=== PATIENT | male | born 1950 | race African-American/Black ===

== ENCOUNTER 2017-11-04 09:32 | Inpatient (IN) | payer OTHER ==
[2017-11-04 09:36] VITALS: BMI 21.5
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
[2017-11-04] MEDS ORDERED: hydrOXYzine PAMOATE 50 MG CAPSULE (FP) PO PRN (09:52)
[2017-11-04] MEDS ORDERED: NICOTINE POLACRILEX 4 MG GUM BUC PRN (09:52)
[2017-11-04] MEDS ORDERED: MAGNESIUM CITRATE 300 ML BOTTLE PO PRN (09:52)
[2017-11-04] MEDS ORDERED: MAGNESIUM HYDROX 2400MG/30ML ORAL SUSPENSION 30 ML CUP PO PRN (09:52)
[2017-11-04] MEDS ORDERED: IBUPROFEN 400 MG TABLET (FP) PO PRN (09:52)
[2017-11-04] MEDS ORDERED: MAG HYDROX/AL HYDROX/SIMETH 30 ML UNIT-DOSE CUP PO PRN (09:52)
[2017-11-04] MEDS ORDERED: ACETAMINOPHEN 325 MG TABLET (FP) PO PRN (09:52)
[2017-11-04] MEDS ORDERED: LOPERAMIDE HCL 2 MG CAPSULE PO PRN (09:52)
[2017-11-04] MEDS ORDERED: MENTHOL/PHENOL 1 EACH UD MM PRN (09:52)
[2017-11-04] MEDS ORDERED: guaiFENesin/D-METHORPHAN HB 10 ML UNIT-DOSE CUPS PO PRN (09:52)
[2017-11-04] MEDS ORDERED: chlordiazePOXIDE HCL 25 MG CAPSULE PO ONE (10:45)
[2017-11-04] MEDS: chlordiazePOXIDE HCL 25 MG CAPSULE PO SCH ×3 (11:44→22:13)
[2017-11-04] MEDS: PRENATAL VITAMINS W/ FOLIC ACID TABLET (FP) PO SCH (11:44)
[2017-11-04 16:58] LABS: URINE APPEARANCE CLEAR; URINE BILIRUBIN NEGATIVE (<2.0 mg/dL); URINE COLOR LTYELLOW; URINE GLUCOSE (UA) NEGATIVE (NEGATIVE); URINE KETONE NEGATIVE (NEGATIVE); URINE LEUK ESTERASE NEGATIVE (NEGATIVE); URINE NITRITE NEGATIVE (NEGATIVE); URINE PROTEIN NEGATIVE (NEGATIVE); URINE UROBILINOGEN 4.0 E.U/dl mg/dL (0.2-1.0)
[2017-11-04] MEDS: chlordiazePOXIDE HCL 25 MG CAPSULE PO PRN (19:47)
[2017-11-04] MEDS: P-EPHED 60MG/TRIPROLIDI 2.5MG TABLET PO PRN (20:02)
[2017-11-04] MEDS ORDERED: MELATONIN 5 MG TABLETS PO PRN (22:00)
[2017-11-04] MEDS: THIAMINE HCL 100 MG TABLET (FP) PO SCH (22:13)
[2017-11-05] MEDS: chlordiazePOXIDE HCL 25 MG CAPSULE PO PRN (00:27)
[2017-11-05] MEDS: chlordiazePOXIDE HCL 25 MG CAPSULE PO SCH ×4 (05:42→22:37)
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
[2017-11-05 10:31] LABS: HEMATOCRIT 34.1 % (35.4-49); HEMOGLOBIN 11.7 GM/dL (11.7-16.9); MCH 33.2 pg (25.7-33.7); MCHC 34.3 g/dl (32.0-35.9); MEAN CELL VOLUME 96.8 fl (80-96); MEAN PLT VOLUME 7.8 fl (7.5-11.1); PLATELET COUNT 107 K/MM3 (134-434); RBC 3.53 M/mm3 (4.00-5.60); RDW 15.1 % (11.9-15.9); WHITE BLOOD COUNT 2.9 K/mm3 (4.0-10.0)
[2017-11-05] MEDS: PRENATAL VITAMINS W/ FOLIC ACID TABLET (FP) PO SCH (10:46)
[2017-11-05 10:48] LABS: CHLORIDE 102 mmol/L (98-107); POTASSIUM 3.3 mmol/L (3.5-5.1); SODIUM 140 mmol/L (136-145)
[2017-11-05 10:56] LABS: ALBUMIN 3.3 g/dl (3.4-5.0); ALK PHOS 87 U/L (45-117); ANION GAP 6 (8-16); BILIRUBIN,TOTAL 0.9 mg/dL (0.2-1.0); BLOOD UREA NITROGEN 12 mg/dL (7-18); CALCIUM 7.8 mg/dL (8.5-10.1); CO2 32 mmol/L (21-32); CREATININE 0.8 mg/dL (0.7-1.3); GLUCOSE,RANDOM 92 mg/dL (74-106); SGOT/AST 78 U/L (15-37); SGPT/ALT 26 U/L (12-78); TOT PROT 6.9 g/dl (6.4-8.2)
--- NOTE | 2017-11-05 11:49 | PN ---
BHS Progress Note Note: pt c/o chest discomfort mid upper quadrant of abdomen ekg ordered ekg results no significant changes encouraged to take motrin and [place] will f/u
--- NOTE | 2017-11-05 11:52 | PN ---
[facility] CIWA - CIWA Score Nausea/Vomitin-No Nausea/No Vomiting Muscle Tremors: 4-Moderate,w/Arms Extend Anxiety: 4-Mod. Anxious/Guarded Agitation: 3 Paroxysmal Sweats: 3 Orientation: 0-Oriented Tacttile Disturbances: 0-None Auditory Disturbances: 0-None Visual Disturbances: 0-None Headache: 0-None Present CIWA-Ar Total Score: 14 S Progress Note (SOAP) Subjective: sweats body aches chest discomfort interrupted sleep Objective: 11/05/17 11:51 Vital Signs Temperature 97.5 F L 11/05/17 11:15 Pulse Rate 68 11/05/17 11:30 Respiratory Rate 18 11/05/17 11:30 Blood Pressure 107/65 11/05/17 11:15 O2 Sat by Pulse Oximetry (%) Laboratory Tests 11/04/17 11/05/17 11/05/17 14:20 07:30 07:30 WBC 2.9 L RBC 3.53 L Hgb 11.7 Hct 34.1 L MCV 96.8 H MCH 33.2 MCHC 34.3 RDW 15.1 Plt Count 107 L MPV 7.8 Sodium 140 Potassium 3.3 L Chloride 102 Carbon Dioxide 32 Anion Gap 6 L BUN 12 Creatinine 0.8 Creat Clearance w eGFR > 60 Random Glucose 92 Calcium 7.8 L Total Bilirubin 0.9 AST 78 H ALT 26 Alkaline Phosphatase 87 Total Protein 6.9 Albumin 3.3 L Urine Color Ltyellow Urine Appearance Clear Urine pH 6.0 Ur Specific [place] 1.013 Urine Protein Negative Urine Glucose (UA) Negative Urine Ketones Negative Urine Blood 1+ H Urine Nitrite Negative Urine Bilirubin Negative Urine Urobilinogen 4.0 e.u/dl Ur Leukocyte Esterase Negative Urine WBC (Auto) <1 Urine RBC (Auto) 1 RPR Titer HIV 1&2 Antibody Screen HIV P24 Antigen 11/05/17 11/05/17 07:30 07:30 WBC RBC Hgb Hct MCV MCH MCHC RDW Plt Count MPV Sodium Potassium Chloride Carbon Dioxide Anion Gap BUN Creatinine Creat Clearance w eGFR Random Glucose Calcium Total Bilirubin AST ALT Alkaline Phosphatase Total Protein Albumin Urine Color Urine Appearance Urine pH Ur Specific [place] Urine Protein Urine Glucose (UA) Urine Ketones Urine Blood Urine Nitrite Urine Bilirubin Urine Urobilinogen Ur Leukocyte Esterase Urine WBC (Auto) Urine RBC (Auto) RPR Titer Nonreactive HIV 1&2 Antibody Screen Negative HIV P24 Antigen Negative potassium 3.2; k-dur 2meq x 4 days ordered aaox3 lying in bed no acute distress Assessment: 11/05/17 11:52 withdrawal sx Plan: continue detox increase fluids
[2017-11-05 12:08] LABS: SICKLE CELL SCREEN NEGATIVE (NEGATIVE)
[2017-11-05] MEDS: POTASSIUM CHLORIDE TABS 20 MEQ TABLET.ER (FP) PO SCH (14:25)
[2017-11-05] MEDS: THIAMINE HCL 100 MG TABLET (FP) PO SCH (22:36)
[2017-11-05] MEDS: QUEtiapine FUMARATE 100 MG TABLET (FP) PO SCH (22:37)
[2017-11-06] MEDS: chlordiazePOXIDE HCL 25 MG CAPSULE PO SCH (05:42)
[2017-11-06] MEDS: PRENATAL VITAMINS W/ FOLIC ACID TABLET (FP) PO SCH (09:36)
[2017-11-06] MEDS: P-EPHED 60MG/TRIPROLIDI 2.5MG TABLET PO PRN (09:36)
[2017-11-06] MEDS: POTASSIUM CHLORIDE TABS 20 MEQ TABLET.ER (FP) PO SCH (09:36)
[2017-11-06] MEDS: chlordiazePOXIDE 5 MG CAPSULE PO SCH ×3 (10:28→22:20)
--- NOTE | 2017-11-06 12:41 | EKG ---
Test Reason : Blood Pressure : / mmHG Vent. Rate : 062 BPM Atrial Rate : 062 BPM P-R Int : 170 ms QRS Dur : 094 ms QT Int : 462 ms P-R-T Axes : -28 027 -20 degrees QTc Int : 468 ms NORMAL SINUS RHYTHM INCOMPLETE RIGHT BUNDLE BRANCH BLOCK INFERIOR INFARCT , AGE UNDETERMINED ABNORMAL ECG WHEN COMPARED WITH ECG OF 04-NOV-2017 11:21, VENT. RATE HAS DECREASED BY 32 BPM INFERIOR INFARCT IS NOW PRESENT NON-SPECIFIC CHANGE IN ST SEGMENT IN INFERIOR LEADS T WAVE INVERSION NOW EVIDENT IN INFERIOR LEADS Confirmed by SHAWN TAYLOR MD ([id number]) on 11/06/2017 12:40:39 PM Referred By: Confirmed By:SHAWN TAYLOR MD
--- NOTE | 2017-11-06 12:42 | EKG ---
Test Reason : Blood Pressure : / mmHG Vent. Rate : 094 BPM Atrial Rate : 094 BPM P-R Int : 168 ms QRS Dur : 098 ms QT Int : 380 ms P-R-T Axes : 081 001 081 degrees QTc Int : 475 ms NORMAL SINUS RHYTHM INCOMPLETE RIGHT BUNDLE BRANCH BLOCK BORDERLINE ECG NO PREVIOUS ECGS AVAILABLE Confirmed by SHAWN TAYLOR MD ([id number]) on 11/06/2017 12:41:47 PM Referred By: Confirmed By:SHAWN TAYLOR MD
--- NOTE | 2017-11-06 14:26 | PN ---
[facility] CIWA - CIWA Score Nausea/Vomitin-No Nausea/No Vomiting Muscle Tremors: 3 Anxiety: 4-Mod. Anxious/Guarded Agitation: 0-Normal Activity Paroxysmal Sweats: 2 Orientation: 0-Oriented Tacttile Disturbances: 2-Mild Itch/Numbness/Burn Auditory Disturbances: 1-Very Mild Visual Disturbances: 2-Mild Sensitivity Headache: 0-None Present CIWA-Ar Total Score: 14 BHS Progress Note (SOAP) Subjective: Tremors, Fatigue, Sweating. Objective: PATIENT A & O X 3. NO ACUTE DISTRESS. 11/06/17 14:24 Vital Signs Temperature 96 F L 11/06/17 14:08 Pulse Rate 70 11/06/17 14:08 Respiratory Rate 20 11/06/17 14:08 Blood Pressure 105/56 11/06/17 14:08 O2 Sat by Pulse Oximetry (%) Laboratory Tests 11/04/17 11/05/17 11/05/17 14:20 07:30 07:30 WBC 2.9 L RBC 3.53 L Hgb 11.7 Hct 34.1 L MCV 96.8 H MCH 33.2 MCHC 34.3 RDW 15.1 Plt Count 107 L MPV 7.8 Sickle Cell Screen Negative Sodium 140 Potassium 3.3 L Chloride 102 Carbon Dioxide 32 Anion Gap 6 L BUN 12 Creatinine 0.8 Creat Clearance w eGFR > 60 Random Glucose 92 Calcium 7.8 L Total Bilirubin 0.9 AST 78 H ALT 26 Alkaline Phosphatase 87 Total Protein 6.9 Albumin 3.3 L Urine Color Ltyellow Urine Appearance Clear Urine pH 6.0 Ur Specific [place] 1.013 Urine Protein Negative Urine Glucose (UA) Negative Urine Ketones Negative Urine Blood 1+ H Urine Nitrite Negative Urine Bilirubin Negative Urine Urobilinogen 4.0 e.u/dl Ur Leukocyte Esterase Negative Urine WBC (Auto) <1 Urine RBC (Auto) 1 RPR Titer HIV 1&2 Antibody Screen HIV P24 Antigen 11/05/17 11/05/17 07:30 07:30 WBC RBC Hgb Hct MCV MCH MCHC RDW Plt Count MPV Sickle Cell Screen Sodium Potassium Chloride Carbon Dioxide Anion Gap BUN Creatinine Creat Clearance w eGFR Random Glucose Calcium Total Bilirubin AST ALT Alkaline Phosphatase Total Protein Albumin Urine Color Urine Appearance Urine pH Ur Specific [place] Urine Protein Urine Glucose (UA) Urine Ketones Urine Blood Urine Nitrite Urine Bilirubin Urine Urobilinogen Ur Leukocyte Esterase Urine WBC (Auto) Urine RBC (Auto) RPR Titer Nonreactive HIV 1&2 Antibody Screen Negative HIV P24 Antigen Negative LABS NOTED. Assessment: 11/06/17 14:24 WITHDRAWAL SYMPTOMS. LEUKPOPENIA. HYPOKALEMIA. 11/06/17 14:26 Plan: CONTINUE DETOX. CONTINUE K-DUR. ENCOURAGE AMBULATION. INCREASE DAILY PO FLUID INTAKE.
[2017-11-06] MEDS: THIAMINE HCL 100 MG TABLET (FP) PO SCH (22:20)
[2017-11-06] MEDS: QUEtiapine FUMARATE 100 MG TABLET (FP) PO SCH (22:21)
[2017-11-07] MEDS: chlordiazePOXIDE 5 MG CAPSULE PO SCH (05:55)
[2017-11-07] MEDS: PRENATAL VITAMINS W/ FOLIC ACID TABLET (FP) PO SCH (10:28)
[2017-11-07] MEDS: POTASSIUM CHLORIDE TABS 20 MEQ TABLET.ER (FP) PO SCH (10:28)
[2017-11-07] MEDS: chlordiazePOXIDE HCL 10 MG CAPSULE PO SCH ×3 (10:28→22:42)
--- NOTE | 2017-11-07 14:24 | PN ---
BHS Progress Note (SOAP) Subjective: Fatigue, Sweating, Anxious. Objective: PATIENT A & O X 3, OBSERVED AMBULATING ON UNIT. NO ACUTE DISTRESS. 11/07/17 14:22 Vital Signs Temperature 95.4 F L 11/07/17 14:09 Pulse Rate 109 H 11/07/17 14:09 Respiratory Rate 18 11/07/17 14:09 Blood Pressure 137/89 11/07/17 14:09 O2 Sat by Pulse Oximetry (%) Laboratory Tests 11/04/17 11/05/17 11/05/17 14:20 07:30 07:30 WBC 2.9 L RBC 3.53 L Hgb 11.7 Hct 34.1 L MCV 96.8 H MCH 33.2 MCHC 34.3 RDW 15.1 Plt Count 107 L MPV 7.8 Sickle Cell Screen Negative Sodium 140 Potassium 3.3 L Chloride 102 Carbon Dioxide 32 Anion Gap 6 L BUN 12 Creatinine 0.8 Creat Clearance w eGFR > 60 Random Glucose 92 Calcium 7.8 L Total Bilirubin 0.9 AST 78 H ALT 26 Alkaline Phosphatase 87 Total Protein 6.9 Albumin 3.3 L Urine Color Ltyellow Urine Appearance Clear Urine pH 6.0 Ur Specific [place] 1.013 Urine Protein Negative Urine Glucose (UA) Negative Urine Ketones Negative Urine Blood 1+ H Urine Nitrite Negative Urine Bilirubin Negative Urine Urobilinogen 4.0 e.u/dl Ur Leukocyte Esterase Negative Urine WBC (Auto) <1 Urine RBC (Auto) 1 RPR Titer HIV 1&2 Antibody Screen HIV P24 Antigen 11/05/17 11/05/17 07:30 07:30 WBC RBC Hgb Hct MCV MCH MCHC RDW Plt Count MPV Sickle Cell Screen Sodium Potassium Chloride Carbon Dioxide Anion Gap BUN Creatinine Creat Clearance w eGFR Random Glucose Calcium Total Bilirubin AST ALT Alkaline Phosphatase Total Protein Albumin Urine Color Urine Appearance Urine pH Ur Specific [place] Urine Protein Urine Glucose (UA) Urine Ketones Urine Blood Urine Nitrite Urine Bilirubin Urine Urobilinogen Ur Leukocyte Esterase Urine WBC (Auto) Urine RBC (Auto) RPR Titer Nonreactive HIV 1&2 Antibody Screen Negative HIV P24 Antigen Negative LABS NOTED. Assessment: 11/07/17 14:23 WITHDRAWAL SYMPTOMS. HYPOKALEMIA. 11/07/17 14:23 Plan: CONTINUE DETOX. CONTINUE K-DUR. INCREASE DAILY PO FLUID INTAKE.
[2017-11-07] MEDS: THIAMINE HCL 100 MG TABLET (FP) PO SCH (22:42)
[2017-11-07] MEDS: QUEtiapine FUMARATE 100 MG TABLET (FP) PO SCH (22:42)
[2017-11-08] MEDS: chlordiazePOXIDE HCL 10 MG CAPSULE PO SCH (05:24)
[2017-11-08 09:11] VITALS: BP 129/84; PULSE 90; TEMP 96
[2017-11-08] MEDS: PRENATAL VITAMINS W/ FOLIC ACID TABLET (FP) PO SCH (10:31)
[2017-11-08] MEDS: POTASSIUM CHLORIDE TABS 20 MEQ TABLET.ER (FP) PO SCH (10:31)
[2017-11-08] MEDS: P-EPHED 60MG/TRIPROLIDI 2.5MG TABLET PO PRN (11:45)
--- NOTE | 2017-11-08 16:12 | PN ---
BHS Progress Note (SOAP) Subjective: Patient denies current Detox symptoms and reports that he feels well overall. Objective: PATIENT A & O X 3, OBSERVED AMBULATING ON UNIT. NO ACUTE DISTRESS. 11/08/17 16:11 Vital Signs Temperature 96 F L 11/08/17 09:10 Pulse Rate 90 11/08/17 09:10 Respiratory Rate 20 11/08/17 09:10 Blood Pressure 129/84 11/08/17 09:10 O2 Sat by Pulse Oximetry (%) Laboratory Tests 11/04/17 11/05/17 11/05/17 14:20 07:30 07:30 WBC 2.9 L RBC 3.53 L Hgb 11.7 Hct 34.1 L MCV 96.8 H MCH 33.2 MCHC 34.3 RDW 15.1 Plt Count 107 L MPV 7.8 Sickle Cell Screen Negative Sodium 140 Potassium 3.3 L Chloride 102 Carbon Dioxide 32 Anion Gap 6 L BUN 12 Creatinine 0.8 Creat Clearance w eGFR > 60 Random Glucose 92 Calcium 7.8 L Total Bilirubin 0.9 AST 78 H ALT 26 Alkaline Phosphatase 87 Total Protein 6.9 Albumin 3.3 L Urine Color Ltyellow Urine Appearance Clear Urine pH 6.0 Ur Specific [place] 1.013 Urine Protein Negative Urine Glucose (UA) Negative Urine Ketones Negative Urine Blood 1+ H Urine Nitrite Negative Urine Bilirubin Negative Urine Urobilinogen 4.0 e.u/dl Ur Leukocyte Esterase Negative Urine WBC (Auto) <1 Urine RBC (Auto) 1 RPR Titer HIV 1&2 Antibody Screen HIV P24 Antigen 11/05/17 11/05/17 07:30 07:30 WBC RBC Hgb Hct MCV MCH MCHC RDW Plt Count MPV Sickle Cell Screen Sodium Potassium Chloride Carbon Dioxide Anion Gap BUN Creatinine Creat Clearance w eGFR Random Glucose Calcium Total Bilirubin AST ALT Alkaline Phosphatase Total Protein Albumin Urine Color Urine Appearance Urine pH Ur Specific [place] Urine Protein Urine Glucose (UA) Urine Ketones Urine Blood Urine Nitrite Urine Bilirubin Urine Urobilinogen Ur Leukocyte Esterase Urine WBC (Auto) Urine RBC (Auto) RPR Titer Nonreactive HIV 1&2 Antibody Screen Negative HIV P24 Antigen Negative LABS NOTED. Assessment: 11/08/17 16:11 COMPLETION OF DETOX REGIMEN. Plan: PATIENT SCHEDULED FOR DISCHARGE FROM DETOX UNIT TODAY.
--- NOTE | 2017-11-08 16:16 | DS ---
[facility] Detox Discharge Summary Admission Date: 11/04/17 Discharge Date: 11/08/17 - History Present History: Alcohol Dependence, Cocaine Dependence Additional Comments: PATIENT GOING TO [facility] ([place], [place] FOR AFTERCARE. PATIENT WAS DISCHARGED FROM DETOX UNIT IN STABLE MEDICAL CONDITION. Pertinent Past History: Nicotine Dependence, Bipolar Disorder, Schizoaffective Disorder, Dehydration, Hypokalemia, Low Back Pain, Dehydration. - Physical Exam Results Vital Signs: Vital Signs Temperature 96 F L 11/08/17 09:10 Pulse Rate 90 11/08/17 09:10 Respiratory Rate 20 11/08/17 09:10 Blood Pressure 129/84 11/08/17 09:10 O2 Sat by Pulse Oximetry (%) Pertinent Admission Physical Exam Findings: WITHDRAWAL SYMPTOMS. Laboratory Tests 11/04/17 11/05/17 11/05/17 14:20 07:30 07:30 WBC 2.9 L RBC 3.53 L Hgb 11.7 Hct 34.1 L MCV 96.8 H MCH 33.2 MCHC 34.3 RDW 15.1 Plt Count 107 L MPV 7.8 Sickle Cell Screen Negative Sodium 140 Potassium 3.3 L Chloride 102 Carbon Dioxide 32 Anion Gap 6 L BUN 12 Creatinine 0.8 Creat Clearance w eGFR > 60 Random Glucose 92 Calcium 7.8 L Total Bilirubin 0.9 AST 78 H ALT 26 Alkaline Phosphatase 87 Total Protein 6.9 Albumin 3.3 L Urine Color Ltyellow Urine Appearance Clear Urine pH 6.0 Ur Specific [place] 1.013 Urine Protein Negative Urine Glucose (UA) Negative Urine Ketones Negative Urine Blood 1+ H Urine Nitrite Negative Urine Bilirubin Negative Urine Urobilinogen 4.0 e.u/dl Ur Leukocyte Esterase Negative Urine WBC (Auto) <1 Urine RBC (Auto) 1 RPR Titer HIV 1&2 Antibody Screen HIV P24 Antigen 11/05/17 11/05/17 07:30 07:30 WBC RBC Hgb Hct MCV MCH MCHC RDW Plt Count MPV Sickle Cell Screen Sodium Potassium Chloride Carbon Dioxide Anion Gap BUN Creatinine Creat Clearance w eGFR Random Glucose Calcium Total Bilirubin AST ALT Alkaline Phosphatase Total Protein Albumin Urine Color Urine Appearance Urine pH Ur Specific [place] Urine Protein Urine Glucose (UA) Urine Ketones Urine Blood Urine Nitrite Urine Bilirubin Urine Urobilinogen Ur Leukocyte Esterase Urine WBC (Auto) Urine RBC (Auto) RPR Titer Nonreactive HIV 1&2 Antibody Screen Negative HIV P24 Antigen Negative LABS NOTED. - Treatment Hospital Course: Detox Protocol Followed, Detoxed Safely, Responded well, Discharged Condition Good Patient has Accepted a Rehab Referral to: PT GOING TO [facility] ([place] - Medication Discharge Medications: Ambulatory Orders Quetiapine Fumarate [Seroquel] 100 mg PO HS #30 tablet 11/05/17 - Diagnosis (1) Hypokalemia Status: Acute (2) Alcohol dependence with uncomplicated withdrawal Status: Acute (3) Dehydration Status: Acute (4) Low back pain Status: Chronic Qualifiers: Chronicity: chronic Back pain laterality: bilateral Sciatica presence: without sciatica Qualified Code(s): M54.5 - Low back pain; G89.29 - Other chronic pain; G89.29 - Other chronic pain (5) Nicotine dependence Status: Chronic Qualifiers: Nicotine product type: cigarettes Substance use status: uncomplicated Qualified Code(s): F17.210 - Nicotine dependence, cigarettes, uncomplicated (6) Cocaine dependence Status: Acute Qualifiers: Substance use status: uncomplicated Qualified Code(s): F14.20 - Cocaine dependence, uncomplicated (7) Substance induced mood disorder Status: Acute (8) Substance-induced sleep disorder Status: Acute (9) Schizoaffective disorder Status: Chronic Qualifiers: Schizoaffective disorder type: unspecified Qualified Code(s): F25.9 - Schizoaffective disorder, unspecified - AMA Did Patient Leave Against Medical Advice: No
== END 2017-11-08 14:10 | disposition home or self-care (01) | DRG 897 ==
LOC: YASAS 09:32 → Y3N 10:37
PROVIDERS: ADMIT Internal Medicine; ATTEND Internal Medicine
PROC: HZ2ZZZZ Detoxification Services for Substance Abuse Treatment (ICD-10-PCS; principal; 2017-11-04)
DX: F10.230 Alcohol dependence with withdrawal, uncomplicated (principal); F14.20 Cocaine dependence, uncomplicated; F19.282 Other psychoactive substance dependence with psychoactive substance-induced sleep disorder; F17.210 Nicotine dependence, cigarettes, uncomplicated; F31.9 Bipolar disorder, unspecified; F25.9 Schizoaffective disorder, unspecified; F19.24 Other psychoactive substance dependence with psychoactive substance-induced mood disorder; E86.0 Dehydration; E87.6 Hypokalemia; M54.5 Low back pain; G89.29 Other chronic pain; Z91.5 Personal history of self-harm
CPT/HCPCS: 36415; 80053; 81003; 81015; 85027; 85660; 86593; 87389; 93005; 93010

== ENCOUNTER 2019-08-21 17:11 | Inpatient (IN) | payer OTHER ==
[2019-08-21 19:28] VITALS: BMI 18.6
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
[2019-08-21] MEDS ORDERED: hydrOXYzine PAMOATE 25 MG CAPSULE (FP) PO PRN (20:56)
[2019-08-21] MEDS ORDERED: BISMUTH SUBSALICYLATE 524 MG/30 ML UD PO PRN (20:56)
[2019-08-21] MEDS ORDERED: IBUPROFEN 400 MG TABLET (FP) PO PRN (20:56)
[2019-08-21] MEDS ORDERED: MAGNESIUM CITRATE 300 ML BOTTLE PO PRN (20:56)
[2019-08-21] MEDS ORDERED: MAG HYDROX/AL HYDROX/SIMETH 30 ML UNIT-DOSE CUP PO PRN (20:56)
[2019-08-21] MEDS ORDERED: ACETAMINOPHEN 325 MG TABLET (FP) PO PRN ×2 (20:56)
[2019-08-21] MEDS ORDERED: MELATONIN 5 MG TABLETS PO PRN (20:56)
[2019-08-21] MEDS ORDERED: MAGNESIUM HYDROX 2400MG/30ML ORAL SUSPENSION 30 ML CUP PO PRN (20:56)
[2019-08-21] MEDS ORDERED: MENTHOL/PHENOL 1 EACH UD MM PRN (20:56)
[2019-08-21] MEDS ORDERED: chlordiazePOXIDE HCL 25 MG CAPSULE PO PRN (20:59)
[2019-08-21] MEDS ORDERED: METOPROLOL TARTRATE 50 MG TABLET (FP) PO ONE (21:07)
[2019-08-21] MEDS ORDERED: TETRAHYDROZOLINE HCL EYE DROPS OU PRN (21:08)
[2019-08-21] MEDS ORDERED: THIAMINE HCL 100 MG TABLET (FP) PO SCH (22:00)
[2019-08-21] MEDS: chlordiazePOXIDE HCL 25 MG CAPSULE PO SCH (22:45)
[2019-08-22] MEDS: chlordiazePOXIDE HCL 25 MG CAPSULE PO SCH ×2 (06:05→10:21)
[2019-08-22] MEDS ORDERED: PRENATAL VITAMINS W/ FOLIC ACID TABLET (FP) PO SCH (10:00)
[2019-08-22 10:14] LABS: HEMATOCRIT 33.8 % (35.4-49); HEMOGLOBIN 11.5 GM/dL (11.7-16.9); MCH 32.6 pg (25.7-33.7); MCHC 34.1 g/dl (32.0-35.9); MEAN CELL VOLUME 95.6 fl (80-96); MEAN PLT VOLUME 8.9 fl (7.5-11.1); PLATELET COUNT 95 K/MM3 (134-434); RBC 3.53 M/mm3 (4.00-5.60); RDW 14.6 % (11.9-15.9); WHITE BLOOD COUNT 4.2 K/mm3 (4.0-10.0)
[2019-08-22 10:20] LABS: ALBUMIN 3.6 g/dl (3.4-5.0); BILIRUBIN,TOTAL 0.8 mg/dL (0.2-1); BLOOD UREA NITROGEN 24.2 mg/dL (7-18); CALCIUM 8.6 mg/dL (8.5-10.1); CREATININE 1.2 mg/dL (0.55-1.3); POTASSIUM 3.5 mmol/L (3.5-5.1); TOT PROT 7.4 g/dl (6.4-8.2)
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
--- NOTE | 2019-08-22 12:04 | PN ---
[facility] CIWA - CIWA Score Nausea/Vomitin-Mild Nausea/No Vomiting Muscle Tremors: 2 Anxiety: 4-Mod. Anxious/Guarded Agitation: 4-Moderately Restless Paroxysmal Sweats: 1-Minimal Palms Moist Orientation: 4Disoriented Place/Person Tacttile Disturbances: 0-None Auditory Disturbances: 0-None Visual Disturbances: 0-None Headache: 0-None Present CIWA-Ar Total Score: 16 [facility] Progress Note (SOAP) Subjective: 69 years old male admitted on 08/21/19 for alcohol withdrawal sx management treating with librium detox regimen ast 918 discontinue motrin discontinue librium acetaminophen magnesium contain substance begin ativan detox regiment plt 95 discontinue motrin patient appears confused "how you get in my house?" patient is disoriented to place time situation reoriented the patient without receptive patient can not follow verbal command case discussed with ER Dr. Manriquez medical evaluation is necessary at this time Objective: 08/22/19 12:40 Vital Signs Temperature 97.9 F 08/22/19 12:18 Pulse Rate 86 08/22/19 12:18 Respiratory Rate 16 08/22/19 12:18 Blood Pressure 108/70 08/22/19 12:18 O2 Sat by Pulse Oximetry (%) Laboratory Last Values WBC 4.2 K/mm3 (4.0-10.0) 08/22/19 08:00 RBC 3.53 M/mm3 (4.00-5.60) L 08/22/19 08:00 Hgb 11.5 GM/dL (11.7-16.9) L 08/22/19 08:00 Hct 33.8 % (35.4-49) L 08/22/19 08:00 MCV 95.6 fl (80-96) 08/22/19 08:00 MCH 32.6 pg (25.7-33.7) 08/22/19 08:00 MCHC 34.1 g/dl (32.0-35.9) 08/22/19 08:00 RDW 14.6 % (11.9-15.9) 08/22/19 08:00 Plt Count 95 K/MM3 (134-434) L 08/22/19 08:00 MPV 8.9 fl (7.5-11.1) D 08/22/19 08:00 Sodium 139 mmol/L (136-145) 08/22/19 08:00 Potassium 3.5 mmol/L (3.5-5.1) 08/22/19 08:00 Chloride 102 mmol/L (98-107) 08/22/19 08:00 Carbon Dioxide 29 mmol/L (21-32) 08/22/19 08:00 Anion Gap 8 MMOL/L (8-16) 08/22/19 08:00 BUN 24.2 mg/dL (7-18) H 08/22/19 08:00 Creatinine 1.2 mg/dL (0.55-1.3) 08/22/19 08:00 Est GFR (CKD-EPI)AfAm 71.58 08/22/19 08:00 Est GFR (CKD-EPI)NonAf 61.76 08/22/19 08:00 Random Glucose 126 mg/dL (74-106) H 08/22/19 08:00 Calcium 8.6 mg/dL (8.5-10.1) 08/22/19 08:00 Total Bilirubin 0.8 mg/dL (0.2-1) 08/22/19 08:00 AST 918 U/L (15-37) H 08/22/19 08:00 ALT 284 U/L (13-61) H 08/22/19 08:00 Alkaline Phosphatase 98 U/L (45-117) 08/22/19 08:00 Total Protein 7.4 g/dl (6.4-8.2) 08/22/19 08:00 Albumin 3.6 g/dl (3.4-5.0) 08/22/19 08:00 RPR Titer Nonreactive (NONREACTIVE) 08/22/19 08:00 lab noted low plt ast elevation bun elevation Assessment: 08/22/19 12:41 alcohol withdrawal alteration mental status Plan: ativan regiment
[2019-08-22] MEDS ORDERED: LORazepam 1 MG TABLET PO PRN (12:13)
[2019-08-22 12:23] VITALS: BP 108/70; PULSE 86; TEMP 97.9
[2019-08-22] MEDS ORDERED: LORazepam 0.5 MG TABLET PO SCH (14:00)
[2019-08-22] MEDS ORDERED: QUEtiapine FUMARATE 25 MG TABLET PO SCH (22:00)
[2019-08-23] MEDS ORDERED: chlordiazePOXIDE HCL 25 MG CAPSULE PO SCH (05:00)
[2019-08-23] MEDS ORDERED: LORazepam 0.5 MG TABLET PO SCH (05:00)
[2019-08-24] MEDS ORDERED: chlordiazePOXIDE HCL 10 MG CAPSULE PO PRN
[2019-08-24] MEDS ORDERED: chlordiazePOXIDE HCL 10 MG CAPSULE PO SCH (05:00)
[2019-08-24] MEDS ORDERED: LORazepam 0.5 MG TABLET PO SCH (05:00)
[2019-08-25] MEDS ORDERED: LORazepam 0.5 MG TABLET PO SCH (05:00)
[2019-08-25] MEDS ORDERED: chlordiazePOXIDE HCL 10 MG CAPSULE PO SCH (05:00)
[2019-08-26] MEDS ORDERED: LORazepam 0.5 MG TABLET PO ONE (05:00)
[2019-08-26] MEDS ORDERED: chlordiazePOXIDE HCL 10 MG CAPSULE PO ONE (05:00)
== END 2019-08-22 22:40 | disposition short-term general hospital (02) | DRG 897 ==
LOC: YASAS 17:11 → Y3N 21:35
PROVIDERS: ADMIT Allergy & Immunology
PROC: HZ2ZZZZ Detoxification Services for Substance Abuse Treatment (ICD-10-PCS; principal; 2019-08-21)
DX: F10.230 Alcohol dependence with withdrawal, uncomplicated (principal); F14.20 Cocaine dependence, uncomplicated; F19.282 Other psychoactive substance dependence with psychoactive substance-induced sleep disorder; F17.210 Nicotine dependence, cigarettes, uncomplicated; F25.9 Schizoaffective disorder, unspecified; R41.82 Altered mental status, unspecified; Z91.5 Personal history of self-harm
CPT/HCPCS: 36415; 80053; 82962; 85027; 86593

== ENCOUNTER 2019-08-22 12:58 | Inpatient (IN) | payer OTHER ==
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
--- NOTE | 2019-08-22 16:17 | PDOC ---
Documentation entered by Adarsh Crowder SCRIBE, acting as scribe for Josette Ash MD. Josette Ash MD: This documentation has been prepared by the Lakesha metzger Nirvannie, SCRIBE, under my direction and personally reviewed by me in its entirety. I confirm that the documentation accurately reflects all work, treatment, procedures, and medical decision making performed by me. Attending Attestation - Resident Resident Name: CameronRadha - ED Attending Attestation I have performed the following: I have examined & evaluated the patient, The case was reviewed & discussed with the resident, I agree w/resident's findings & plan, Exceptions are as noted - HPI HPI: 08/22/19 14:34 The patient is a 69 year old male, with a significant past medical history of polysubstance abuse (alcohol, last drink 4 days ago and crack cocaine), who presents to the emergency department via EMS with AMS. As per [facility] staff, patient was altered to place and location this morning with associated abnormal lab values (depicting thrombocytopenia and transaminitis), prompting her arrival to the ED. He denies any recent nausea, vomit, diarrhea or constipation. He denies any recent chest pain or shortness of breath. Allergies: NKDA Social History: Polysubstance abuse (alcohol, cocaine). Primary Care Physician: Dr. Velasquez ([place]). - Physicial Exam PE: 08/22/19 16:15 awake alert NAD lungs clear bilat heart rrr on mrg abd soft nt nd ext wwp. no edema. nocalf tenderness. alert oriented to person and year, disoriented to name of hospital. but knows he was at [facility] and was recently at [facility]. - Medical Decision Making 08/22/19 16:16 69 yo male here from [facility] with h/o polysubstance use etoh cocaine, for concerns for elevated LFT. pt at this time is very alert, only [facility] no asterixis on exam. no abd tenderness. labs noted LFT consistent wih etoh abuse. lipase normal. bilirubin normal. pt denies other alcohol use or tylenol use. will ector lundberg back to [facility] pending read us
[2019-08-22] MEDS ORDERED: SODIUM CHLORIDE 0.9% 1000 ML INFUS.BAG IV ONE (16:24)
[2019-08-22 17:20] LABS: ALBUMIN 3.6 g/dl (3.4-5.0); BILIRUBIN,TOTAL 0.8 mg/dL (0.2-1); BLOOD UREA NITROGEN 18.8 mg/dL (7-18); CALCIUM 8.6 mg/dL (8.5-10.1); CREATININE 0.9 mg/dL (0.55-1.3); POTASSIUM 3.9 mmol/L (3.5-5.1); TOT PROT 7.7 g/dl (6.4-8.2)
[2019-08-22] MEDS ORDERED: FOLIC ACID INJECTION - 1 MG, THIAMINE HCL 100 MG, MULTIVIT INJECTION ADULT 10 ML in SOD... IVPB ONE (18:03)
[2019-08-22] MEDS ORDERED: FOLIC ACID 1 MG TABLET (FP) PO ONE (18:03)
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
[2019-08-22] MEDS ORDERED: FOLIC ACID 1 MG TABLET (FP) ONE (20:54)
--- NOTE | 2019-08-22 22:13 | PN ---
Teaching Attending Note Name of Resident: Jatinder Velásquez ATTENDING PHYSICIAN STATEMENT I saw and evaluated the patient. I reviewed the resident's note and discussed the case with the resident. I agree with the resident's findings and plan as documented. 69 M h/o PSA with Etoh, crack cocaine, presenting from [facility] because of their staff endorsing patient had episode of confusion and AMS. When evaluated, patient AAox3, speaking in full sentences, denies complaints. Was seen sitting on stretcher in ED eating a sandwich and drinking juice. Patient denies weight changes, N/V/D, chest pain, SOB, dizziness, LOC, syncope. PE GA cachectic, AAox3, speaking in full sentences, ambulating HEENT NC/AT, EOMI, no oral thrush, neck supple Chest CTAB, no crackles or wheezing CVS S1, S2+, RRR Abd Soft, thin body habitus, BS+, no RUQ tenderness, mc sign negative, liver edge not palpable, no guarding Ext No LE edema, no calf tenderness Vital Signs - 24 hr 08/22/19 08/22/19 08/22/19 13:00 17:02 21:03 Temperature 97.9 F 98.5 F 98.3 F Pulse Rate 86 Pulse Rate [ 88 78 Right Radial] Respiratory 19 19 19 Rate Blood Pressure 108/70 Blood Pressure 122/68 136/78 [Left Arm] O2 Sat by Pulse 99 99 99 Oximetry (%) Laboratory Results - last 24 hr 08/22/19 08/22/19 08/22/19 14:10 14:10 16:30 Sodium 138 Potassium 3.9 Chloride 101 Carbon Dioxide 30 Anion Gap 6 L BUN 18.8 H Creatinine 0.9 Est GFR (CKD-EPI)AfAm 101.36 Est GFR (CKD-EPI)NonAf 87.45 Random Glucose 91 Calcium 8.6 Total Bilirubin 0.8 AST 699 H ALT 238 H Alkaline Phosphatase 101 Ammonia 39.50 H Total Protein 7.7 Albumin 3.6 Lipase 536 H Influenza A (Rapid) Influenza B (Rapid) 08/22/19 21:35 Sodium Potassium Chloride Carbon Dioxide Anion Gap BUN Creatinine Est GFR (CKD-EPI)AfAm Est GFR (CKD-EPI)NonAf Random Glucose Calcium Total Bilirubin AST ALT Alkaline Phosphatase Ammonia Total Protein Albumin Lipase Influenza A (Rapid) Negative Influenza B (Rapid) Negative Home Medications Medication Instructions Recorded Quetiapine Fumarate [Seroquel] 50 mg PO HS 08/21/19 Current Medications Generic Name Dose Route Start Last Admin Trade Name Jeff PRN Reason Stop Dose Admin Folic Acid 1 mg/ Thiamine HCl 1,000 mls @ 75 mls/hr 08/22/19 18:03 08/22/19 21:27 100 mg/ Multivitamins/Minerals IVPB 08/23/19 07:22 75 mls/hr 10 ml/ Sodium Chloride ONCE ONE Administration Insulin Aspart 1 vial 08/22/19 22:00 Novolog Vial Sliding Scale - SQ ACHS [facility] Protocol Thiamine HCl 100 mg 08/23/19 10:00 Vitamin B1 - PO DAILY ELE[facility] A/P: 69 M h/o PSA, Etoh w/ crack cocaine, presents after an episode of reported AMS and confusion at [facility]. ?AMS/confusion ?seizure episode, CT-brain neg. no focal deficits on exam no signs of Etoh withdrawal, last drink 4 days ago, obtain Utox Cont. Thiamine/FA/MV daily DC back to [facility] when clinically appropriate Main pancreatic duct dilatation Pancreatic mass not visualized Elevated lipase, ?due to passed CBD stone GI evaluation, likely needs outpatient follow up Thrombocytopenia Due to underlying Etoh abuse No signs of bleeding Hold AC for now, patient ambulating Etoh hepatitis Transaminitis supporting Etoh abuse pattern, improving Etoh abstinence, no need for steroids Thiamine/FA/MV daily Gall bladder distention No clinical signs for cholecystitis, mc sign negative, tolerating PO, ambulating Surgery evaluation for possible outpatient intervention DVT ppx: ambulation FEN: IVF/trend chem/regular diet Med-Surg
[2019-08-22 22:18] LABS: PH,URINE 7.5 (5.0-8.0); URINE APPEARANCE CLEAR; URINE BILIRUBIN NEGATIVE (NEGATIVE); URINE COLOR YELLOW; URINE GLUCOSE (UA) NEGATIVE (NEGATIVE); URINE KETONE NEGATIVE (NEGATIVE); URINE LEUK ESTERASE NEGATIVE (NEGATIVE); URINE NITRITE NEGATIVE (NEGATIVE); URINE PROTEIN NEGATIVE (NEGATIVE)
[2019-08-22] MEDS: INSULIN SLIDING SCALE (NOVOLOG) 1 VIAL SQ SCH (22:40)
[2019-08-23 03:05] VITALS: BMI 17.2
[2019-08-23] MEDS: INSULIN SLIDING SCALE (NOVOLOG) 1 VIAL SQ SCH ×2 (06:14→11:25)
[2019-08-23 07:57] LABS: BASO % 1.1 % (0-2.0); EOS % 4.6 % (0-4.5); HEMATOCRIT 34.8 % (35.4-49); HEMOGLOBIN 11.9 GM/dL (11.7-16.9); LYMPH % 34.9 % (8-40); MCH 32.6 pg (25.7-33.7); MCHC 34.1 g/dl (32.0-35.9); MEAN CELL VOLUME 95.6 fl (80-96); MEAN PLT VOLUME 8.4 fl (7.5-11.1); MONO % 11.8 % (3.8-10.2); NEUT % 47.6 % (42.8-82.8); PLATELET COUNT 86 K/MM3 (134-434); RBC 3.64 M/mm3 (4.00-5.60); RDW 14.5 % (11.9-15.9); WHITE BLOOD COUNT 3.6 K/mm3 (4.0-10.0)
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
[2019-08-23 08:23] LABS: ALBUMIN 3.3 g/dl (3.4-5.0); BLOOD UREA NITROGEN 13.1 mg/dL (7-18); CALCIUM 8.8 mg/dL (8.5-10.1); CREATININE 0.8 mg/dL (0.55-1.3); MAGNESIUM 1.5 mg/dL (1.8-2.4); PHOSPHOROUS 2.1 mg/dL (2.5-4.9); POTASSIUM 3.5 mmol/L (3.5-5.1); TOT PROT 7.1 g/dl (6.4-8.2)
--- NOTE | 2019-08-23 08:24 | PN ---
Progress Note, Physician Chief Complaint: Patient remained stable denies any new complaints. - Current Medication List Current Medications: Active Medications Insulin Aspart (Novolog Vial Sliding Scale -) 1 vial SQ ACHS [facility]; Protocol Last Admin: 08/23/19 06:14 Dose: Not Given Thiamine HCl (Vitamin B1 -) 100 mg PO DAILY [facility] - Objective Vital Signs: Vital Signs Temperature 98.0 F 08/23/19 06:05 Pulse Rate 82 08/23/19 06:05 Respiratory Rate 15 08/23/19 06:05 Blood Pressure 128/79 08/23/19 06:05 O2 Sat by Pulse Oximetry (%) 99 08/22/19 21:03 General: Elderly man, comfortable, not in distress HEENT; mucous membranes moist, no anemia, no jaundice, PERRLA, no nystagmus Neck: No JVD, supple, no bruit, thyroid palpably normal, normal carotid pulsations. Chest: Nontender, clear to auscultation bilaterally CVS: S1-S2 regular/ no murmur/gallop/rub Abdomen: Nondistended, soft, bowel sounds present. 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 Problems reviewed: Yes Code(s): F10.230 - ALCOHOL DEPENDENCE WITH WITHDRAWAL, UNCOMPLICATED (2) Confusion Assessment/Plan: Improved most likely due to drug-induced patient is walking, eating meals. Problems reviewed: Yes Code(s): R41.0 - DISORIENTATION, UNSPECIFIED (3) Substance induced mood disorder Assessment/Plan: Trending normal, abdominal ultrasound not cholelithiasis, evaluated surgery team recommended no acute intervention incidental finding of gallstones no clinical sign or symptoms of acute cholecystitis. Problems reviewed: Yes Code(s): F19.94 - OTH PSYCHOACTIVE SUBSTANCE USE, UNSP W MOOD DISORDER
[2019-08-23 08:30] LABS: INR 1.06 (0.83-1.09); PROTHROMBIN TIME (PATIENT) 12.5 SEC (9.7-13.0)
[2019-08-23] MEDS ORDERED: INSULIN (NOVOLOG) ASPART 100 UNITS/ML 10ML VIAL ONE (09:21)
[2019-08-23 09:49] VITALS: TEMP 98.2
[2019-08-23] MEDS ORDERED: THIAMINE HCL 100 MG TABLET (FP) PO SCH (10:00)
--- NOTE | 2019-08-23 10:01 | PN ---
Progress Note (short form) - Note Progress Note: Attending Surgeon Patient seen and evaluated; concur w/ a/p as outlined by my PA; there is no indication for operative intervention in this patient at this time w/incidental findings of cholelithiais. Sergio Roland MD FACS
[2019-08-23] MEDS ORDERED: LACTULOSE 20 GM/30 ML UDC (FOR ORAL USE ONLY) PO ONE (13:26)
--- NOTE | 2019-08-23 13:28 | DS ---
Physical Examination Vital Signs: Vital Signs Temperature 98.2 F 08/23/19 08:35 Pulse Rate 91 H 08/23/19 08:35 Respiratory Rate 17 08/23/19 08:35 Blood Pressure 119/75 08/23/19 08:35 O2 Sat by Pulse Oximetry (%) 99 08/22/19 21:03 General: Elderly man, comfortable, not in distress HEENT; mucous membranes moist, no anemia, no jaundice, PERRLA, no nystagmus Neck: No JVD, supple, no bruit, thyroid palpably normal, normal carotid pulsations. Chest: Nontender, clear to auscultation bilaterally CVS: S1-S2 regular/ no murmur/gallop/rub Abdomen: Nondistended, soft, bowel sounds present. Extremities: No edema., No calf tenderness, pulses present ACCOUNT SERVICES ASSOCIATE: AO X3 , no gross motor sensory deficit Labs: CBC, BMP 08/23/19 07:35 08/23/19 07:35 CBC,CMP WBC 3.6 K/mm3 (4.0-10.0) L 08/23/19 07:35 RBC 3.64 M/mm3 (4.00-5.60) L 08/23/19 07:35 Hgb 11.9 GM/dL (11.7-16.9) 08/23/19 07:35 Hct 34.8 % (35.4-49) L 08/23/19 07:35 MCV 95.6 fl (80-96) 08/23/19 07:35 MCH 32.6 pg (25.7-33.7) 08/23/19 07:35 MCHC 34.1 g/dl (32.0-35.9) 08/23/19 07:35 RDW 14.5 % (11.9-15.9) 08/23/19 07:35 Plt Count 86 K/MM3 (134-434) L 08/23/19 07:35 MPV 8.4 fl (7.5-11.1) 08/23/19 07:35 Absolute Neuts (auto) 1.7 K/mm3 (1.5-8.0) 08/23/19 07:35 Neutrophils % 47.6 % (42.8-82.8) 08/23/19 07:35 Lymphocytes % 34.9 % (8-40) 08/23/19 07:35 Monocytes % 11.8 % (3.8-10.2) H 08/23/19 07:35 Eosinophils % 4.6 % (0-4.5) H 08/23/19 07:35 Basophils % 1.1 % (0-2.0) 08/23/19 07:35 Nucleated RBC % 0 % (0-0) 08/23/19 07:35 Sodium 141 mmol/L (136-145) 08/23/19 07:35 Potassium 3.5 mmol/L (3.5-5.1) 08/23/19 07:35 Chloride 106 mmol/L (98-107) 08/23/19 07:35 Carbon Dioxide 29 mmol/L (21-32) 08/23/19 07:35 Anion Gap 6 MMOL/L (8-16) L 08/23/19 07:35 BUN 13.1 mg/dL (7-18) 08/23/19 07:35 Creatinine 0.8 mg/dL (0.55-1.3) 08/23/19 07:35 Est GFR (CKD-EPI)AfAm 106.38 08/23/19 07:35 Est GFR (CKD-EPI)NonAf 91.79 08/23/19 07:35 POC Glucometer 104 UNITS (80-120) 08/23/19 11:22 Random Glucose 101 mg/dL (74-106) 08/23/19 07:35 Calcium 8.8 mg/dL (8.5-10.1) 08/23/19 07:35 Phosphorus 2.1 mg/dL (2.5-4.9) L 08/23/19 07:35 Magnesium 1.5 mg/dL (1.8-2.4) L 08/23/19 07:35 Total Bilirubin 1.0 mg/dL (0.2-1) 08/23/19 07:35 GGT 522 U/L (5-85) H 08/23/19 07:35 AST 412 U/L (15-37) H 08/23/19 07:35 ALT 179 U/L (13-61) H 08/23/19 07:35 Alkaline Phosphatase 88 U/L (45-117) 08/23/19 07:35 Ammonia 39.50 umol/L (11-32) H 08/22/19 14:10 Total Protein 7.1 g/dl (6.4-8.2) 08/23/19 07:35 Albumin 3.3 g/dl (3.4-5.0) L 08/23/19 07:35 Lipase 536 U/L (73-393) H 08/22/19 14:10 Discharge Summary Problems reviewed: Yes Reason For Visit: ALCHOHOL INDEUCED PANCREATITIS Current Active Problems Acute cholecystitis (Acute) Cholelithiasis (Acute) Confusion (Acute) Condition: Stable - Instructions Diet, Activity, Other Instructions: Regular Disposition: TRANSFER ACUTE CARE/OTHER HOSP - Home Medications Comprehensive Discharge Medication List: Ambulatory Orders Quetiapine Fumarate [Seroquel -] 50 mg PO HS 08/21/19 Insulin Sliding Scale [Novolog Vial Sliding Scale -] 1 vial SQ ACHS units 08/23 Thiamine HCl [Vitamin B1 -] 100 mg PO DAILY tablet 08/23/19 Prescription Drug Monitoring Program (I-STOP) results: I-STOP reviewed and no issues identified
[2019-08-23] MEDS ORDERED: DOCUSATE SODIUM 100 MG CAPSULE (FP) PO SCH (13:30)
--- NOTE | 2019-08-23 15:12 | EKG ---
Test Reason : Blood Pressure : / mmHG Vent. Rate : 078 BPM Atrial Rate : 078 BPM P-R Int : 160 ms QRS Dur : 094 ms QT Int : 420 ms P-R-T Axes : 089 035 084 degrees QTc Int : 478 ms NORMAL SINUS RHYTHM NONSPECIFIC INTRAVENTRICULAR CONDUCTION DEFECT NONSPECIFIC T WAVE ABNORMALITY NORMAL ECG Confirmed by GILLES QUEVEDO MD ([id number]) on 08/23/2019 3:11:55 PM Referred By: Confirmed By:GILLES QUEVEDO MD
[2019-08-23 15:22] VITALS: BP 120/70; PULSE 89
== END 2019-08-23 14:46 | disposition other institution (70) | DRG 445 ==
LOC: JER 12:58 → JERBED 17:03 → J8W 08-23 00:40
PROVIDERS: ATTEND Internal Medicine
DX: K80.20 Calculus of gallbladder without cholecystitis without obstruction (principal); R64 Cachexia; Z68.1 Body mass index [BMI] 19.9 or less, adult; F10.230 Alcohol dependence with withdrawal, uncomplicated; F14.10 Cocaine abuse, uncomplicated; D69.6 Thrombocytopenia, unspecified; K86.89 Other specified diseases of pancreas; K70.10 Alcoholic hepatitis without ascites; F19.94 Other psychoactive substance use, unspecified with psychoactive substance-induced mood disorder; R41.0 Disorientation, unspecified; R74.0 Nonspecific elevation of levels of transaminase and lactic acid dehydrogenase [LDH]
CPT/HCPCS: 36415; 70450-TC; 76705-TC; 80053; 80074; 81003; 82140; 82962; 82977; 83690; 83735; 84100; 85025; 85610; 87040; 87086; 87804; 93005; 93010; 97116-GP; 97161-GP; 99285-25; J7030

== ENCOUNTER 2019-08-23 15:23 | Inpatient (IN) | payer OTHER ==
[2019-08-23 15:46] VITALS: BMI 16.6
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
[2019-08-23] MEDS ORDERED: BISMUTH SUBSALICYLATE 524 MG/30 ML UD PO PRN (16:17)
[2019-08-23] MEDS ORDERED: MENTHOL/PHENOL 1 EACH UD MM PRN (16:17)
[2019-08-23] MEDS ORDERED: MAG HYDROX/AL HYDROX/SIMETH 30 ML UNIT-DOSE CUP PO PRN (16:17)
[2019-08-23] MEDS ORDERED: MAGNESIUM CITRATE 300 ML BOTTLE PO PRN (16:17)
[2019-08-23] MEDS ORDERED: hydrOXYzine PAMOATE 25 MG CAPSULE (FP) PO PRN (16:17)
[2019-08-23] MEDS ORDERED: MAGNESIUM HYDROX 2400MG/30ML ORAL SUSPENSION 30 ML CUP PO PRN (16:17)
[2019-08-23] MEDS ORDERED: LORazepam 1 MG TABLET PO PRN (16:18)
[2019-08-23] MEDS ORDERED: METOPROLOL TARTRATE 25 MG TABLET (FP) PO ONE (16:20)
[2019-08-23] MEDS: LORazepam 2 MG TABLET PO SCH ×2 (17:47→22:08)
[2019-08-23] MEDS: THIAMINE HCL 100 MG TABLET (FP) PO SCH (22:08)
[2019-08-23] MEDS: MELATONIN 5 MG TABLETS PO PRN (22:08)
[2019-08-24] MEDS: LORazepam 1 MG TABLET PO SCH ×4 (06:42→22:15)
[2019-08-24] MEDS: PRENATAL VITAMINS W/ FOLIC ACID TABLET (FP) PO SCH (10:58)
--- NOTE | 2019-08-24 13:30 | PN ---
S CIWA - CIWA Score Nausea/Vomitin-No Nausea/No Vomiting Muscle Tremors: 2 Anxiety: 4-Mod. Anxious/Guarded Agitation: 3 Paroxysmal Sweats: 1-Minimal Palms Moist Orientation: 0-Oriented Tacttile Disturbances: 0-None Auditory Disturbances: 0-None Visual Disturbances: 0-None Headache: 0-None Present CIWA-Ar Total Score: 10 BHS Progress Note (SOAP) Subjective: Anxiety,sweats,chills,Fatigue,slight tremors.Communicating needs and in good spirit. Objective: 08/24/19 13:28 Vital Signs - 24 hr 08/23/19 08/23/19 08/23/19 15:25 17:38 21:35 Temperature 97.8 F 96.6 F L 97.2 F L Pulse Rate 126 H 117 H 82 Respiratory 20 20 19 Rate Blood Pressure 125/82 135/73 142/94 08/24/19 08/24/19 08/24/19 00:30 03:22 07:04 Temperature 97.7 F Pulse Rate 73 Respiratory 18 18 18 Rate Blood Pressure 124/81 08/24/19 11:27 Temperature 97.5 F L Pulse Rate 98 H Respiratory 18 Rate Blood Pressure 125/80 Wt:116 lb BMI=16.6 08/24/19 13:31 Alert o x 3 nad oob ambulating with steady gait room to nursing station and around the unit. Assessment: 08/24/19 13:28 JAXSON w/s Decreased weight Plan: cont detox increase po fluids Ensure plus 1 can po TID
--- NOTE | 2019-08-24 18:09 | CONSULT ---
[facility] Psychiatric Consult - Data Date of interview: 08/24/19 Admission source: [facility] Substance Abuse History: Patient was approached at bedside by this securities underwriter for the psychiatric interview. Mr Mary noted as midly sedated, somnolent. Patient declined interview. Nursing staff is made aware.
[2019-08-24] MEDS: THIAMINE HCL 100 MG TABLET (FP) PO SCH (22:15)
[2019-08-24] MEDS: TETRAHYDROZOLINE HCL EYE DROPS OU PRN (22:16)
[2019-08-24] MEDS: MELATONIN 5 MG TABLETS PO PRN (23:17)
[2019-08-25] MEDS ORDERED: LORazepam 0.5 MG TABLET PO ONE (05:00)
[2019-08-25] MEDS: PRENATAL VITAMINS W/ FOLIC ACID TABLET (FP) PO SCH (11:21)
--- NOTE | 2019-08-25 20:08 | PN ---
S Progress Note Note: Patient completed detox today for alcohol dependence. States " I feel much better" Vital Signs Period Temp Pulse Resp BP Sys/Fowler Pulse Ox Last 24 Hr 97.1 F-98.2 F 87-113 16-20 110-140/66-90 Patient is alert and oriented x 2 (forgetful with date) skin warm and dry +perrla eoms intact bl car s1s2 resp cta bl ext full rom, amb ad donald A/P alcohol dependence Stable to transfer to [address] [place] [address] [facility] for rehab hx of etoh induced pancreatitis will order cbc, cmp and ammonia level in am
[2019-08-25] MEDS: THIAMINE HCL 100 MG TABLET (FP) PO SCH (21:06)
[2019-08-25] MEDS: MELATONIN 5 MG TABLETS PO PRN (21:07)
[2019-08-26] MEDS: PRENATAL VITAMINS W/ FOLIC ACID TABLET (FP) PO SCH (10:17)
[2019-08-26] MEDS: IBUPROFEN 400 MG TABLET (FP) PO PRN (10:17)
[2019-08-26 12:33] LABS: BASO % 1.2 % (0-2.0); EOS % 5.2 % (0-4.5); HEMATOCRIT 38.1 % (35.4-49); HEMOGLOBIN 12.8 GM/dL (11.7-16.9); LYMPH % 36.3 % (8-40); MCH 32.8 pg (25.7-33.7); MCHC 33.5 g/dl (32.0-35.9); MEAN CELL VOLUME 97.8 fl (80-96); MEAN PLT VOLUME 8.8 fl (7.5-11.1); MONO % 12.4 % (3.8-10.2); NEUT % 44.9 % (42.8-82.8); PLATELET COUNT 125 K/MM3 (134-434); RBC 3.89 M/mm3 (4.00-5.60); RDW 14.5 % (11.9-15.9); WHITE BLOOD COUNT 4.8 K/mm3 (4.0-10.0)
[2019-08-26 12:57] LABS: ALBUMIN 3.8 g/dl (3.4-5.0); BILIRUBIN,TOTAL 0.6 mg/dL (0.2-1); BLOOD UREA NITROGEN 11.7 mg/dL (7-18); CALCIUM 9.5 mg/dL (8.5-10.1); CREATININE 0.9 mg/dL (0.55-1.3); POTASSIUM 3.6 mmol/L (3.5-5.1); TOT PROT 7.8 g/dl (6.4-8.2)
--- NOTE | 2019-08-26 12:59 | PN ---
[facility] Progress Note Note: Patient transferred to rehab from [address] [place] [address] for alcohol dependence. Patient was treated at [facility] for alcohol induced pancreatitis on 08/22/2019 and returned to [facility] on 08/23/2019 to complete detox. Patient does not have regular PCP in community. PMH Schizoaffective disorder. Laboratory Tests 08/26/19 08/26/19 08/26/19 08:15 08:15 08:15 WBC 4.8 RBC 3.89 L Hgb 12.8 Hct 38.1 MCV 97.8 H MCH 32.8 MCHC 33.5 RDW 14.5 Plt Count 125 L D MPV 8.8 Absolute Neuts (auto) 2.2 Neutrophils % 44.9 Lymphocytes % 36.3 Monocytes % 12.4 H Eosinophils % 5.2 H Basophils % 1.2 Nucleated RBC % 0 Sodium 139 Potassium 3.6 Chloride 105 Carbon Dioxide 28 Anion Gap 7 L BUN 11.7 Creatinine 0.9 Est GFR (CKD-EPI)AfAm 101.36 Est GFR (CKD-EPI)NonAf 87.45 Random Glucose 93 Calcium 9.5 Total Bilirubin 0.6 AST 133 H ALT 121 H Alkaline Phosphatase 103 Ammonia 69.40 H Total Protein 7.8 Albumin 3.8 Vital Signs (72 hours) 08/23/19 08/23/19 08/23/19 15:25 17:38 21:35 Temperature 97.8 F 96.6 F L 97.2 F L Pulse Rate 126 H 117 H 82 Respiratory 20 20 19 Rate Blood Pressure 125/82 135/73 142/94 08/24/19 08/24/19 08/24/19 00:30 03:22 07:04 Temperature 97.7 F Pulse Rate 73 Respiratory 18 18 18 Rate Blood Pressure 124/81 08/24/19 08/24/19 08/24/19 11:27 14:36 18:11 Temperature 97.5 F L 97.7 F 97.7 F Pulse Rate 98 H 89 Respiratory 18 18 18 Rate Blood Pressure 125/80 130/74 106/82 08/24/19 08/24/19 08/25/19 18:25 21:41 00:30 Temperature 97.7 F Pulse Rate 104 H 101 H Respiratory 18 18 Rate Blood Pressure 140/90 08/25/19 08/25/19 08/25/19 03:30 07:26 09:43 Temperature 98.2 F 97.1 F L Pulse Rate 87 88 Respiratory 18 18 16 Rate Blood Pressure 110/66 129/79 08/25/19 08/25/19 08/26/19 14:29 18:00 03:30 Temperature 97.2 F L 98.7 F Pulse Rate 113 H 72 Respiratory 20 18 18 Rate Blood Pressure 125/88 121/68 08/26/19 06:54 Temperature 98.0 F Pulse Rate 108 H Respiratory 18 Rate Blood Pressure 129/81 alert and oriented x 3 skin warm and dry car s1s2 resp cta bl ext full rom, amb ad donald no tremors a/p elevated ammonia level alcohol dependence will order lactulose 20g tid repeat ammonia level on 08/29/18 continue rehab
[2019-08-26] MEDS: TETRAHYDROZOLINE HCL EYE DROPS OU PRN ×2 (14:06→20:16)
[2019-08-26] MEDS: LACTULOSE 20 GM/30 ML UDC (FOR ORAL USE ONLY) PO SCH ×2 (14:30→21:10)
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
[2019-08-26] MEDS: THIAMINE HCL 100 MG TABLET (FP) PO SCH (21:10)
[2019-08-26] MEDS: QUEtiapine FUMARATE 25 MG TABLET PO SCH (21:10)
[2019-08-27] MEDS: LACTULOSE 20 GM/30 ML UDC (FOR ORAL USE ONLY) PO SCH ×3 (07:20→21:08)
[2019-08-27] MEDS: PRENATAL VITAMINS W/ FOLIC ACID TABLET (FP) PO SCH (10:13)
[2019-08-27] MEDS: IBUPROFEN 400 MG TABLET (FP) PO PRN (10:14)
[2019-08-27] MEDS: TETRAHYDROZOLINE HCL EYE DROPS OU PRN ×2 (10:15→21:10)
[2019-08-27] MEDS: THIAMINE HCL 100 MG TABLET (FP) PO SCH (21:08)
[2019-08-27] MEDS: QUEtiapine FUMARATE 25 MG TABLET PO SCH (21:08)
[2019-08-28] MEDS: LACTULOSE 20 GM/30 ML UDC (FOR ORAL USE ONLY) PO SCH ×3 (06:26→21:10)
[2019-08-28] MEDS: PRENATAL VITAMINS W/ FOLIC ACID TABLET (FP) PO SCH (10:15)
--- NOTE | 2019-08-28 15:52 | PN ---
S Progress Note Note: Pt is a 69 y/o male with a hx of JAXSON-alcohol,crack/cocaine admitted to rehab from [address] [place] [address] on 08/25/19. PMHx:Bladder incontinence. Psych Hx;Depression. Pt reports he has a primary care provider, Dr. Ron Manriquez at [place], [place]. Vital Signs - 24 hr 08/28/19 08/28/19 08/28/19 00:30 03:30 07:14 Temperature 97.7 F Pulse Rate 101 H Respiratory 16 16 16 Rate Blood Pressure 104/73 Alert o x 3, denies s/h/i nad oob ambulating with steady extremities/skin:no edema; unkept feet/nails; dry, scaly, feet/dry nails; Calluses on both feet. A/P JAXSON new rehab pt Callused feet Maintain safety increase po fluids cont. rehab warm foot soaks Moisturize as directed.
[2019-08-28] MEDS: QUEtiapine FUMARATE 25 MG TABLET PO SCH (21:10)
[2019-08-28] MEDS: THIAMINE HCL 100 MG TABLET (FP) PO SCH (21:11)
[2019-08-28] MEDS: TETRAHYDROZOLINE HCL EYE DROPS OU PRN (21:11)
[2019-08-28] MEDS: MELATONIN 5 MG TABLETS PO PRN (21:11)
[2019-08-29] MEDS: IBUPROFEN 400 MG TABLET (FP) PO PRN ×2 (06:49→14:56)
[2019-08-29] MEDS: LACTULOSE 20 GM/30 ML UDC (FOR ORAL USE ONLY) PO SCH ×3 (06:53→21:52)
[2019-08-29] MEDS: PRENATAL VITAMINS W/ FOLIC ACID TABLET (FP) PO SCH (10:49)
[2019-08-29 12:21] LABS: HEMATOCRIT 34.8 % (35.4-49); HEMOGLOBIN 11.7 GM/dL (11.7-16.9); MCH 33.2 pg (25.7-33.7); MCHC 33.7 g/dl (32.0-35.9); MEAN CELL VOLUME 98.8 fl (80-96); MEAN PLT VOLUME 8.4 fl (7.5-11.1); PLATELET COUNT 204 K/MM3 (134-434); RBC 3.52 M/mm3 (4.00-5.60); RDW 14.7 % (11.9-15.9)
[2019-08-29 12:50] LABS: ALBUMIN 3.6 g/dl (3.4-5.0); BILIRUBIN,TOTAL 0.7 mg/dL (0.2-1); BLOOD UREA NITROGEN 18.8 mg/dL (7-18); CALCIUM 9.4 mg/dL (8.5-10.1); POTASSIUM 3.8 mmol/L (3.5-5.1); TOT PROT 7.3 g/dl (6.4-8.2)
[2019-08-29] MEDS: TETRAHYDROZOLINE HCL EYE DROPS OU PRN (16:06)
[2019-08-29] MEDS: THIAMINE HCL 100 MG TABLET (FP) PO SCH (21:51)
[2019-08-29] MEDS: QUEtiapine FUMARATE 25 MG TABLET PO SCH (21:51)
[2019-08-30] MEDS: LACTULOSE 20 GM/30 ML UDC (FOR ORAL USE ONLY) PO SCH ×3 (06:47→21:45)
[2019-08-30] MEDS: PRENATAL VITAMINS W/ FOLIC ACID TABLET (FP) PO SCH (10:11)
--- NOTE | 2019-08-30 14:13 | PN ---
[facility] Progress Note Note: Lab review: Laboratory Tests 08/26/19 08/26/19 08/26/19 08:15 08:15 08:15 WBC 4.8 RBC 3.89 L Hgb 12.8 Hct 38.1 MCV 97.8 H MCH 32.8 MCHC 33.5 RDW 14.5 Plt Count 125 L D MPV 8.8 Absolute Neuts (auto) 2.2 Neutrophils % 44.9 Lymphocytes % 36.3 Monocytes % 12.4 H Eosinophils % 5.2 H Basophils % 1.2 Nucleated RBC % 0 Sodium 139 Potassium 3.6 Chloride 105 Carbon Dioxide 28 Anion Gap 7 L BUN 11.7 Creatinine 0.9 Est GFR (CKD-EPI)AfAm 101.36 Est GFR (CKD-EPI)NonAf 87.45 Random Glucose 93 Calcium 9.5 Total Bilirubin 0.6 AST 133 H ALT 121 H Alkaline Phosphatase 103 Ammonia 69.40 H Total Protein 7.8 Albumin 3.8 08/29/19 08/29/19 08/29/19 09:20 09:20 09:20 WBC 4.0 RBC 3.52 L Hgb 11.7 Hct 34.8 L MCV 98.8 H MCH 33.2 MCHC 33.7 RDW 14.7 Plt Count 204 D MPV 8.4 Absolute Neuts (auto) Neutrophils % Lymphocytes % Monocytes % Eosinophils % Basophils % Nucleated RBC % Sodium 140 Potassium 3.8 Chloride 104 Carbon Dioxide 31 Anion Gap 4 L BUN 18.8 H Creatinine 1.0 Est GFR (CKD-EPI)AfAm 89.23 Est GFR (CKD-EPI)NonAf 76.99 Random Glucose 94 Calcium 9.4 Total Bilirubin 0.7 AST 71 H ALT 93 H Alkaline Phosphatase 88 Ammonia 84.20 H Total Protein 7.3 Albumin 3.6 Pt refusing some doses of Lactulose. labs noted, Ammonia level elevated. Alert o x nad oob ambulating with steady gait and participating in groups. A/P Hyperammonemia Maintain safety. increase po fluids.
[2019-08-30] MEDS: TETRAHYDROZOLINE HCL EYE DROPS OU PRN (14:32)
[2019-08-30] MEDS: IBUPROFEN 400 MG TABLET (FP) PO PRN (21:45)
[2019-08-30] MEDS: THIAMINE HCL 100 MG TABLET (FP) PO SCH (21:45)
[2019-08-30] MEDS: QUEtiapine FUMARATE 25 MG TABLET PO SCH (21:45)
[2019-08-31] MEDS: LACTULOSE 20 GM/30 ML UDC (FOR ORAL USE ONLY) PO SCH ×3 (06:16→21:14)
[2019-08-31] MEDS: IBUPROFEN 400 MG TABLET (FP) PO PRN ×2 (09:55→21:13)
[2019-08-31] MEDS: PRENATAL VITAMINS W/ FOLIC ACID TABLET (FP) PO SCH (09:55)
[2019-08-31] MEDS: THIAMINE HCL 100 MG TABLET (FP) PO SCH (21:12)
[2019-08-31] MEDS: QUEtiapine FUMARATE 25 MG TABLET PO SCH (21:12)
[2019-09-01] MEDS: TETRAHYDROZOLINE HCL EYE DROPS OU PRN ×2 (00:52→13:59)
[2019-09-01] MEDS: LACTULOSE 20 GM/30 ML UDC (FOR ORAL USE ONLY) PO SCH ×3 (06:53→21:09)
[2019-09-01] MEDS: IBUPROFEN 400 MG TABLET (FP) PO PRN ×2 (06:55→13:56)
[2019-09-01] MEDS: PRENATAL VITAMINS W/ FOLIC ACID TABLET (FP) PO SCH (09:49)
[2019-09-01] MEDS: QUEtiapine FUMARATE 25 MG TABLET PO SCH (21:09)
[2019-09-01] MEDS: THIAMINE HCL 100 MG TABLET (FP) PO SCH (21:09)
[2019-09-02] MEDS: LACTULOSE 20 GM/30 ML UDC (FOR ORAL USE ONLY) PO SCH ×3 (06:40→21:19)
[2019-09-02] MEDS: TETRAHYDROZOLINE HCL EYE DROPS OU PRN ×2 (07:05→11:19)
[2019-09-02] MEDS: PRENATAL VITAMINS W/ FOLIC ACID TABLET (FP) PO SCH (10:36)
[2019-09-02] MEDS: IBUPROFEN 400 MG TABLET (FP) PO PRN (11:18)
[2019-09-02] MEDS ORDERED: COLLOIDAL OATMEAL 1 BAR EACH TP PRN (13:38)
--- NOTE | 2019-09-02 13:48 | PN ---
[facility] Progress Note Note: Pt c/o left shoulder breann and limited ROM to arm and requesting xray. Pt reports he had previous truama to left shoulder during wrestling in 2014 and it healed but may have re-injured it after a fall about a week afo at home "after a fall on the bed". Reports he was taken to [facility] because was incapacitated from alcohol intake and was sent here after overnight stay for detox(states his shoulder was not an issue then). Reports "it was not hurting until a few days ago and want to check it out". Vital Signs - 24 hr 09/02/19 09/02/19 09/02/19 00:30 03:30 06:40 Temperature 97.7 F Pulse Rate 104 H Respiratory 18 16 16 Rate Blood Pressure 133/82 Laboratory Tests 08/26/19 08/26/19 08/26/19 08:15 08:15 08:15 WBC 4.8 RBC 3.89 L Hgb 12.8 Hct 38.1 MCV 97.8 H MCH 32.8 MCHC 33.5 RDW 14.5 Plt Count 125 L D MPV 8.8 Absolute Neuts (auto) 2.2 Neutrophils % 44.9 Lymphocytes % 36.3 Monocytes % 12.4 H Eosinophils % 5.2 H Basophils % 1.2 Nucleated RBC % 0 Sodium 139 Potassium 3.6 Chloride 105 Carbon Dioxide 28 Anion Gap 7 L BUN 11.7 Creatinine 0.9 Est GFR (CKD-EPI)AfAm 101.36 Est GFR (CKD-EPI)NonAf 87.45 Random Glucose 93 Calcium 9.5 Total Bilirubin 0.6 AST 133 H ALT 121 H Alkaline Phosphatase 103 Ammonia 69.40 H Total Protein 7.8 Albumin 3.8 08/29/19 08/29/19 08/29/19 09:20 09:20 09:20 WBC 4.0 RBC 3.52 L Hgb 11.7 Hct 34.8 L MCV 98.8 H MCH 33.2 MCHC 33.7 RDW 14.7 Plt Count 204 D MPV 8.4 Absolute Neuts (auto) Neutrophils % Lymphocytes % Monocytes % Eosinophils % Basophils % Nucleated RBC % Sodium 140 Potassium 3.8 Chloride 104 Carbon Dioxide 31 Anion Gap 4 L BUN 18.8 H Creatinine 1.0 Est GFR (CKD-EPI)AfAm 89.23 Est GFR (CKD-EPI)NonAf 76.99 Random Glucose 94 Calcium 9.4 Total Bilirubin 0.7 AST 71 H ALT 93 H Alkaline Phosphatase 88 Ammonia 84.20 H Total Protein 7.3 Albumin 3.6 Alert o x 3 nad oob ambulating with steady gait(refuses to use cane stating "i don't need it now. It was only before I came here when i can hardly move". Extremity/skin:Limited ROM(hand raise of Left shoulder); no redness,swelling or open skin noted. Right shoulder with normal active ROM. A/P s/p shoulder truama Maintain safety xray left shoulder r/o new injury. Repeat Ammonia level in A.M.
[2019-09-02] MEDS: NAPHAZOLINE/PHENIRAMINE OPHTHALMIC 15 ML BOTTLE OU PRN (15:49)
[2019-09-02] MEDS: THIAMINE HCL 100 MG TABLET (FP) PO SCH (21:19)
[2019-09-02] MEDS: QUEtiapine FUMARATE 50 MG TABLET PO SCH (21:20)
[2019-09-02] MEDS: MELATONIN 5 MG TABLETS PO PRN (21:20)
[2019-09-03] MEDS: LACTULOSE 20 GM/30 ML UDC (FOR ORAL USE ONLY) PO SCH ×3 (07:37→21:40)
[2019-09-03] MEDS: NAPHAZOLINE/PHENIRAMINE OPHTHALMIC 15 ML BOTTLE OU PRN ×2 (09:58→14:42)
[2019-09-03] MEDS: PRENATAL VITAMINS W/ FOLIC ACID TABLET (FP) PO SCH (09:58)
[2019-09-03] MEDS: IBUPROFEN 400 MG TABLET (FP) PO PRN (09:59)
--- NOTE | 2019-09-03 10:10 | PN ---
[facility] Progress Note Note: Xray Left Shoulder Impression: No acute left shoulder pathology. Vital Signs - 24 hr 09/03/19 09/03/19 09/03/19 00:30 03:30 06:49 Temperature 97.9 F Pulse Rate 106 H Respiratory 16 16 16 Rate Blood Pressure 124/85 Copy of report given to patient to follow up with his primary care provider for further medical management if symptom persist.
[2019-09-03] MEDS: QUEtiapine FUMARATE 50 MG TABLET PO SCH (21:40)
[2019-09-03] MEDS: THIAMINE HCL 100 MG TABLET (FP) PO SCH (21:40)
[2019-09-04] MEDS: NAPHAZOLINE/PHENIRAMINE OPHTHALMIC 15 ML BOTTLE OU PRN ×2 (06:11→19:06)
[2019-09-04] MEDS: LACTULOSE 20 GM/30 ML UDC (FOR ORAL USE ONLY) PO SCH ×3 (06:12→21:41)
[2019-09-04] MEDS: PRENATAL VITAMINS W/ FOLIC ACID TABLET (FP) PO SCH (10:03)
[2019-09-04] MEDS: METHYL SALICYLATE/MENTHOL OINT 30 GM TUBE TP SCH ×2 (11:14→21:41)
[2019-09-04] MEDS: QUEtiapine FUMARATE 50 MG TABLET PO SCH (21:33)
[2019-09-04] MEDS: THIAMINE HCL 100 MG TABLET (FP) PO SCH (21:33)
[2019-09-05] MEDS: LACTULOSE 20 GM/30 ML UDC (FOR ORAL USE ONLY) PO SCH ×3 (06:40→21:25)
[2019-09-05] MEDS: PRENATAL VITAMINS W/ FOLIC ACID TABLET (FP) PO SCH (09:35)
[2019-09-05] MEDS: NAPHAZOLINE/PHENIRAMINE OPHTHALMIC 15 ML BOTTLE OU PRN (09:35)
[2019-09-05] MEDS: METHYL SALICYLATE/MENTHOL OINT 30 GM TUBE TP SCH ×2 (09:36→21:26)
[2019-09-05] MEDS: IBUPROFEN 400 MG TABLET (FP) PO PRN (12:45)
[2019-09-05] MEDS: QUEtiapine FUMARATE 50 MG TABLET PO SCH (21:24)
[2019-09-05] MEDS: THIAMINE HCL 100 MG TABLET (FP) PO SCH (21:25)
[2019-09-06] MEDS: IBUPROFEN 400 MG TABLET (FP) PO PRN (06:32)
[2019-09-06] MEDS: LACTULOSE 20 GM/30 ML UDC (FOR ORAL USE ONLY) PO SCH ×3 (06:33→21:09)
[2019-09-06] MEDS: NAPHAZOLINE/PHENIRAMINE OPHTHALMIC 15 ML BOTTLE OU PRN ×2 (06:34→09:39)
[2019-09-06] MEDS: PRENATAL VITAMINS W/ FOLIC ACID TABLET (FP) PO SCH (09:38)
[2019-09-06] MEDS: METHYL SALICYLATE/MENTHOL OINT 30 GM TUBE TP SCH ×2 (09:39→21:09)
--- NOTE | 2019-09-06 12:49 | PN ---
[facility] Progress Note Note: Laboratory Tests 08/26/19 08/26/19 08/26/19 08:15 08:15 08:15 WBC 4.8 RBC 3.89 L Hgb 12.8 Hct 38.1 MCV 97.8 H MCH 32.8 MCHC 33.5 RDW 14.5 Plt Count 125 L D MPV 8.8 Absolute Neuts (auto) 2.2 Neutrophils % 44.9 Lymphocytes % 36.3 Monocytes % 12.4 H Eosinophils % 5.2 H Basophils % 1.2 Nucleated RBC % 0 Sodium 139 Potassium 3.6 Chloride 105 Carbon Dioxide 28 Anion Gap 7 L BUN 11.7 Creatinine 0.9 Est GFR (CKD-EPI)AfAm 101.36 Est GFR (CKD-EPI)NonAf 87.45 Random Glucose 93 Calcium 9.5 Total Bilirubin 0.6 AST 133 H ALT 121 H Alkaline Phosphatase 103 Ammonia 69.40 H Total Protein 7.8 Albumin 3.8 08/29/19 08/29/19 08/29/19 09:20 09:20 09:20 WBC 4.0 RBC 3.52 L Hgb 11.7 Hct 34.8 L MCV 98.8 H MCH 33.2 MCHC 33.7 RDW 14.7 Plt Count 204 D MPV 8.4 Absolute Neuts (auto) Neutrophils % Lymphocytes % Monocytes % Eosinophils % Basophils % Nucleated RBC % Sodium 140 Potassium 3.8 Chloride 104 Carbon Dioxide 31 Anion Gap 4 L BUN 18.8 H Creatinine 1.0 Est GFR (CKD-EPI)AfAm 89.23 Est GFR (CKD-EPI)NonAf 76.99 Random Glucose 94 Calcium 9.4 Total Bilirubin 0.7 AST 71 H ALT 93 H Alkaline Phosphatase 88 Ammonia 84.20 H Total Protein 7.3 Albumin 3.6 09/03/19 08:30 WBC RBC Hgb Hct MCV MCH MCHC RDW Plt Count MPV Absolute Neuts (auto) Neutrophils % Lymphocytes % Monocytes % Eosinophils % Basophils % Nucleated RBC % Sodium Potassium Chloride Carbon Dioxide Anion Gap BUN Creatinine Est GFR (CKD-EPI)AfAm Est GFR (CKD-EPI)NonAf Random Glucose Calcium Total Bilirubin AST ALT Alkaline Phosphatase Ammonia 44.70 H Total Protein Albumin Ammonia level decreased.
[2019-09-06] MEDS: THIAMINE HCL 100 MG TABLET (FP) PO SCH (21:09)
[2019-09-06] MEDS: QUEtiapine FUMARATE 50 MG TABLET PO SCH (21:09)
[2019-09-07] MEDS: LACTULOSE 20 GM/30 ML UDC (FOR ORAL USE ONLY) PO SCH (06:43)
[2019-09-07 07:15] VITALS: BP 111/73; PULSE 101; TEMP 97.4
--- NOTE | 2019-09-07 09:28 | PN ---
S Progress Note Note: would like to go home alert oriented x 3 ambulation without difficulty no abdominal pain lung clear bilaterally stable for discharge lactulose 20 gram po tid e prescriptiom to [facility] pharmacy for 7 days counselor and nursing supervisory investigative specialist informed by Nurse Danielle Juarez patient left the unit in stable condition time spnet for discharge 30 mins patient wll follow up with out patient program and his own medical provider
--- NOTE | 2019-09-07 09:40 | DS ---
[facility] Rehab Discharge Summary - [facility] Rehab Discharge Summary Admission Date: 08/23/19 Discharge Date: 09/07/19 - History Present History: Alcohol dependence, Cocaine dependence Pertinent Past History: schizoaffective disorder - Discharge Physical Exam Vital Signs: Vital Signs Temperature 97.4 F L 09/07/19 07:15 Pulse Rate 101 H 09/07/19 07:15 Respiratory Rate 16 09/07/19 07:15 Blood Pressure 111/73 09/07/19 07:15 O2 Sat by Pulse Oximetry (%) Pertinent Admission Physical Exam Findings: Vital Signs Temperature 97.4 F L 09/07/19 07:15 Pulse Rate 101 H 09/07/19 07:15 Respiratory Rate 16 09/07/19 07:15 Blood Pressure 111/73 09/07/19 07:15 O2 Sat by Pulse Oximetry (%) Laboratory Last Values WBC 4.0 K/mm3 (4.0-10.0) 08/29/19 09:20 RBC 3.52 M/mm3 (4.00-5.60) L 08/29/19 09:20 Hgb 11.7 GM/dL (11.7-16.9) 08/29/19 09:20 Hct 34.8 % (35.4-49) L 08/29/19 09:20 MCV 98.8 fl (80-96) H 08/29/19 09:20 MCH 33.2 pg (25.7-33.7) 08/29/19 09:20 MCHC 33.7 g/dl (32.0-35.9) 08/29/19 09:20 RDW 14.7 % (11.9-15.9) 08/29/19 09:20 Plt Count 204 K/MM3 (134-434) D 08/29/19 09:20 MPV 8.4 fl (7.5-11.1) 08/29/19 09:20 Absolute Neuts (auto) 2.2 K/mm3 (1.5-8.0) 08/26/19 08:15 Neutrophils % 44.9 % (42.8-82.8) 08/26/19 08:15 Lymphocytes % 36.3 % (8-40) 08/26/19 08:15 Monocytes % 12.4 % (3.8-10.2) H 08/26/19 08:15 Eosinophils % 5.2 % (0-4.5) H 08/26/19 08:15 Basophils % 1.2 % (0-2.0) 08/26/19 08:15 Nucleated RBC % 0 % (0-0) 08/26/19 08:15 Sodium 140 mmol/L (136-145) 08/29/19 09:20 Potassium 3.8 mmol/L (3.5-5.1) 08/29/19 09:20 Chloride 104 mmol/L (98-107) 08/29/19 09:20 Carbon Dioxide 31 mmol/L (21-32) 08/29/19 09:20 Anion Gap 4 MMOL/L (8-16) L 08/29/19 09:20 BUN 18.8 mg/dL (7-18) H 08/29/19 09:20 Creatinine 1.0 mg/dL (0.55-1.3) 08/29/19 09:20 Est GFR (CKD-EPI)AfAm 89.23 08/29/19 09:20 Est GFR (CKD-EPI)NonAf 76.99 08/29/19 09:20 Random Glucose 94 mg/dL (74-106) 08/29/19 09:20 Calcium 9.4 mg/dL (8.5-10.1) 08/29/19 09:20 Total Bilirubin 0.7 mg/dL (0.2-1) 08/29/19 09:20 AST 71 U/L (15-37) H 08/29/19 09:20 ALT 93 U/L (13-61) H 08/29/19 09:20 Alkaline Phosphatase 88 U/L (45-117) 08/29/19 09:20 Ammonia 44.70 umol/L (11-32) H 09/03/19 08:30 Total Protein 7.3 g/dl (6.4-8.2) 08/29/19 09:20 Albumin 3.6 g/dl (3.4-5.0) 08/29/19 09:20 - Treatment Discharge Condition: Discharge condition good - Medication Discharge Medications: Ambulatory Orders Quetiapine Fumarate [Seroquel -] 50 mg PO HS 08/21/19 Diphenhydramine HCl [Benadryl Capsule -] 25 mg PO HS 08/23/19 Insulin Sliding Scale [Novolog Vial Sliding Scale -] 1 vial SQ ACHS units 08/23 Thiamine HCl [Vitamin B1 -] 100 mg PO DAILY tablet 08/23/19 Lactulose (Oral Use) [Cephulac -] 20 gm PO TID #21 udc 09/07/19 - Discharge Instructions Diet, activity, other medical instructions: Diet: Activity: Other medical instructions: - Diagnosis (1) Alcohol use disorder Current Visit: Yes Status: Chronic (2) Cocaine dependence Current Visit: Yes Status: Chronic Qualifiers: Substance use status: uncomplicated Qualified Code(s): F14.20 - Cocaine dependence, uncomplicated (3) Nicotine dependence Current Visit: Yes Status: Chronic Qualifiers: Nicotine product type: cigarettes Substance use status: uncomplicated Qualified Code(s): F17.210 - Nicotine dependence, cigarettes, uncomplicated (4) Schizoaffective disorder Current Visit: Yes Status: Chronic Qualifiers: Schizoaffective disorder type: unspecified Qualified Code(s): F25.9 - Schizoaffective disorder, unspecified - AMA Did Patient Leave Against Medical Advice: No Additional Comments: alert,oriented x 3 ambulation without difficulty heart normal heart sound,s1,s2 lung clear,bilaterally no abdominal pain no suicidal,no homicidal stable for discharge,he would like to go home,and follow up with his own medical provider, and outpatient program discharge in good and stable condition time spending for discharge 30 mins
[2019-09-07] MEDS: METHYL SALICYLATE/MENTHOL OINT 30 GM TUBE TP SCH (11:20)
[2019-09-07] MEDS: PRENATAL VITAMINS W/ FOLIC ACID TABLET (FP) PO SCH (11:20)
== END 2019-09-07 09:20 | disposition home or self-care (01) | DRG 895 ==
LOC: YASAS 15:23 → Y6N 16:53 → Y5N 08-25 15:46
PROVIDERS: ADMIT Allergy & Immunology; ATTEND Allergy & Immunology
PROC: HZ42ZZZ Group Counseling for Substance Abuse Treatment, Cognitive-Behavioral (ICD-10-PCS; principal; 2019-08-23)
DX: F10.20 Alcohol dependence, uncomplicated (principal); F14.20 Cocaine dependence, uncomplicated; E72.20 Disorder of urea cycle metabolism, unspecified; Z68.1 Body mass index [BMI] 19.9 or less, adult; K86.0 Alcohol-induced chronic pancreatitis; F17.210 Nicotine dependence, cigarettes, uncomplicated; F31.9 Bipolar disorder, unspecified; F25.9 Schizoaffective disorder, unspecified; M25.512 Pain in left shoulder; R63.4 Abnormal weight loss
CPT/HCPCS: 36415; 73030-TC-LT-FY; 80053; 82140; 85025; 85027